=== PATIENT | male | born 1995 | race Caucasian/White ===

== ENCOUNTER 2019-08-24 22:26 | Emergency (ER) | payer OTHER ==
[~2019-08-24] VITALS: Ht 190.5 cm; Wt 75.0 kg
[2019-08-24 23:29] LABS: BASO # 0.1 10^3/uL (0.0-0.2); BASO % 0.9 % (0.0-1.0); EOS # 0.7 10^3/uL (0.0-0.5); EOS % 8.6 % (0.0-3.0); HEMATOCRIT 38.8 % (42.0-52.0); HEMOGLOBIN 12.8 g/dl (13.5-17.5); LYMPH # 2.6 10^3/uL (1.5-5.0); LYMPH % 32.9 % (24.0-44.0); MEAN CORPUSCULAR HEMOGLOBIN 29.6 pg (27.0-33.0); MEAN CORPUSCULAR VOLUME 89.8 fl (80.0-96.0); MONO # 0.6 10^3/uL (0.0-0.8); MONO % 7.2 % (0.0-5.0); NEUTROPHILS % 50.3 % (36.0-66.0); PLATELET COUNT, AUTOMATED 294 10^3/uL (150-450); RED BLOOD COUNT 4.32 10^6/uL (4.30-6.10); WHITE BLOOD COUNT 7.9 10^3/uL (4.0-10.0)
[2019-08-24 23:56] LABS: ALBUMIN 4.1 GM/DL (3.2-5.2); ALT/SGPT 15 U/L (12-78); BILIRUBIN,DIRECT 0.1 MG/DL (0.0-0.2); BILIRUBIN,TOTAL 0.3 MG/DL (0.2-1.0); BLOOD UREA NITROGEN 13 MG/DL (7-18); CALCIUM LEVEL 9.3 MG/DL (8.5-10.1); CARBON DIOXIDE LEVEL 30 MEQ/L (21-32); CHLORIDE LEVEL 109 MEQ/L (98-107); CREATININE FOR GFR 1.06 MG/DL (0.70-1.30); GLOMERULAR FILTRATION RATE > 60.0 (>60); GLUCOSE, FASTING 102 MG/DL (70-100); POTASSIUM SERUM 3.8 MEQ/L (3.5-5.1); SODIUM LEVEL 143 MEQ/L (136-145); TOTAL PROTEIN 7.3 GM/DL (6.4-8.2)
[2019-08-25 00:04] LABS: MONO SCRN NEGATIVE (NEGATIVE)
--- NOTE | 2019-08-25 00:45 | REPVR ---
PROCEDURE INFORMATION: Exam: US Abdomen Limited, Right Upper Quadrant Exam date and time: 08/25/2019 12:01 AM Age: 23 years old Clinical history: Abdominal pain; Additional info: Ruq pain/? Enlarged liver TECHNIQUE: Imaging protocol: Real-time ultrasound of the abdomen with image documentation. Examination was focused on the right upper quadrant. COMPARISON: No relevant prior studies available. FINDINGS: Liver: The imaged portions of the liver are unremarkable. While the liver was incompletely imaged on this limited right upper quadrant ultrasound, there is no convincing hepatomegaly. Gallbladder: Gallbladder is distended, without pericholecystic fluid or gallbladder wall thickening. A small amount of sludge layers in the gallbladder. Common bile duct: The common bile duct measures 2 mm. Pancreas: Visualized pancreas is unremarkable. Right kidney: The right kidney measures 10.7 cm. No hydronephrosis. IMPRESSION: 1. Minimal sludge layering in the gallbladder. No cholelithiasis or evidence of cholecystitis. 2. The imaged portions of the liver are unremarkable with no convincing hepatomegaly. Electronically signed by: Nabil Styles On 08/25/2019 00:44:51 AM
[2019-08-25 00:51] VITALS: BP 116/76
--- NOTE | 2019-08-25 08:07 | REP ---
Clinical: Right chest/rib pain . Comparison: None . Technique: PA and lateral. Findings: The mediastinum and cardiac silhouette are normal. The lung adams are clear and without acute consolidation, effusion, or pneumothorax. The skeletal structures are intact and normal. Impression: 1. No acute cardiopulmonary process. Electronically Signed by Kenneth Stallworth MD 08/25/2019 07:58 A
== END 2019-08-25 01:10 | disposition home or self-care (01) ==
LOC: M ED 22:26
DX: K80.50 Calculus of bile duct without cholangitis or cholecystitis without obstruction (principal); F17.200 Nicotine dependence, unspecified, uncomplicated